=== PATIENT | male | born 1950 | race Caucasian/White ===

== ENCOUNTER → 2016-10-04 | Outpatient (CLI) | payer MEDICARE ==
--- NOTE | 2016-10-04 10:50 | XR ---
EXAMINATION TYPE: XR Hip Bilateral Complete DATE OF EXAM: 10/04/2016 10:40 AM CLINICAL HISTORY: pain TECHNIQUE: AP and frogleg views of the bilateral hips are obtained. COMPARISON: None. FINDINGS: There is no acute fracture/dislocation evident. The joint space appears within normal li mits. The overlying soft tissue appears unremarkable. IMPRESSION: 1. There is no acute fracture or dislocation. ICD 10 NO FRACTURE, INITIAL EVALUATION
== END ==
LOC: RADXRMAIN 10:21
PROVIDERS: ATTEND Psychiatry & Neurology Neurology
DX: M25.551 Pain in right hip (principal); R41.3 Other amnesia; R25.1 Tremor, unspecified
CPT/HCPCS: 36415; 73521; 82607; 84439; 84443

== ENCOUNTER → 2016-12-05 | Outpatient (CLI) | payer MEDICARE ==
--- NOTE | 2016-12-05 08:50 | MR ---
EXAMINATION TYPE: MR lumbar spine wo con DATE OF EXAM: 12/05/2016 COMPARISON: NONE HISTORY: spinal stenosis of lsp TECHNIQUE: T1 and T2 axial and sagittal images of the lumbar spine are submitted. FINDINGS: There is no abnormal signal seen within the visualized spinal cord or paraspinal soft tissu es. At L1-2 there is facet arthropathy but no disc herniation or canal stenosis. No foraminal encroachmen t. At L2-3 there is facet arthropathy but no evidence of disc herniation or canal stenosis. No foraminal encroachment. At L3-4 there is facet arthropathy. Mild circumferential disc bulging greater right lateral component and mild right-sided foraminal encroachment At L4-5 there is grade 1 anterolisthesis with marked facet arthropathy, ligamentum flavum hypertrophy and diffuse disc bulging resulting in severe canal stenosis and bilateral foraminal encroachment. At L5-S1 there is mild facet arthropathy. No disc herniation or canal stenosis. No foraminal encroach ment. Benign 8 mm cyst seen within the pedicle of the right L5 vertebral body. IMPRESSION: 1. At L4-5 there is grade 1 anterolisthesis with marked facet arthropathy, ligamentum flavum hypertro phy and diffuse disc bulging resulting in severe canal stenosis and bilateral foraminal encroachment. 2. Multilevel facet arthropathy. Mild circumferential disc bulging L3-L4 greater laterally the right with right-sided foraminal encroachment. 3. 8mm circumscribed cysts compatible L5 vertebral body in the right. Likely benign. Could be correla tressa with nuclear medicine exam.
== END | disposition home or self-care (01) ==
LOC: RADMRIMAIN 08:08
PROVIDERS: ATTEND Psychiatry & Neurology Neurology
DX: M48.06 Spinal stenosis, lumbar region (principal); M51.26 Other intervertebral disc displacement, lumbar region; M43.16 Spondylolisthesis, lumbar region; M46.96 Unspecified inflammatory spondylopathy, lumbar region; M53.86 Other specified dorsopathies, lumbar region; M24.28 Disorder of ligament, vertebrae; M85.68 Other cyst of bone, other site
CPT/HCPCS: 72148

== ENCOUNTER → 2017-08-27 | Outpatient (CLI) | payer MEDICARE ==
--- NOTE | 2017-08-27 21:46 | BD ---
EXAMINATION TYPE: MG DEXA axial skeleton. DATE OF EXAM: 08/27/2017 COMPARISON: NONE CLINICAL HISTORY: 67 YR OLD MALE: ICD-10 CODE: M81.0 OSTEOPOROSIS Height: 68 Weight: 248 FRAX RISK QUESTIONS: Alcohol (3 or more units per day): NO Family History (Parent hip fracture): NO Glucocorticoids (More than 3mos): NO (Ex: prednisone, prednisolone, methylprednisolone, dexamethasone, and hydrocortisone). History of Fracture in Adulthood: NO Secondary Osteoporosis: NO 1. Type 1 Diabetes: NO 2. Hyperthyroidism: NO 3. Menopause before 45: NA 4. Malnutrition: NO 5. Chronic liver disease: NO Rheumatoid Arthritis: NO Current Tobacco Use: NO RISK FACTORS HISTORY OF: UNSURE, ANKLE POSSIBLY: CHILD Surgery to Spine): L4 AND L5 When: 2017 Family History of Osteoporosis: NONE Active: YES Diet low in dairy products/other sources of calcium: YES LOW Lost more than 2 inches in height since high school: NO Hyperparathyroidism: NO Adrenal Insufficiency: NO MEDICATIONS: Additional Medications: BP MEDS, ANTI ANXIETY AND ANTI DEPRESSANTS, REFLUX MEDS, LIPITOR, CALCIUM AND VIT D, ORAL DIABETIC MEDS AND VICTOZA INJECTIONS FOR DIABETES Additional History: DIABETIC, HYPERTENSION, EXAM MEASUREMENTS: Bone mineral densitometry was performed using the [employer]. Bone mineral density as measured about the Lumbar spine is: SPINE NOT TESTED, SURGICAL REPAIR WITH RODS, CAGE AND SCREWS....2017 TO L4 AND L5 Bone mineral density about the R hip (g/cm2): 0.974 Bone mineral density about the L hip (g/cm2): 1.006 T Score values are as follows: -----R Neck: -0.2 -----L Neck: 0.2 -----R Total: -0.3 -----L Total: 0.0 Bone mineral density FIRST BONE DENSITY SCAN.....BASELINE STUDY FRAX%S: THERE IS A 4.5% CHANCE OF A MAJOR OSTEOPOROTIC FX AND A 0.5% FOR HIP FX....PROBABILITY OF FX IN 10 YRS TIME IMPRESSION: Normal (Values between +1 and -1 indicate normal bone mass). Measurements were not taken of the lumb ar spine due to prior surgery. Consider repeating this study in 5 years or sooner if there is some ne w clinical indication. NOTE: T-SCORE=SD OF THE YOUNG ADULT MEAN.
== END | disposition home or self-care (01) ==
LOC: RADBDWWP 13:58
PROVIDERS: ATTEND Family Medicine
DX: M81.0 Age-related osteoporosis without current pathological fracture (principal)
CPT/HCPCS: 77080

== ENCOUNTER → 2019-09-01 | Outpatient (CLI) | payer MEDICARE ==
--- NOTE | 2019-09-01 13:31 | MR ---
EXAMINATION TYPE: MR brain wo/w con DATE OF EXAM: 09/01/2019 COMPARISON: Prior MRI brain May 25, 2016 HISTORY: CVA per order and patient. TECHNIQUE: Multiplanar, multisequence images of the brain and brainstem is performed without and with IV contras t, utilizing 10 mL intravenous Gadavist . FINDINGS: Diffusion weighted images demonstrate no evidence of a recent infarct or other diffusion ab normality. There is diffuse ventricular and sulcal prominence redemonstrated. No significant white ma tter changes are present bilaterally. Midline structures demonstrate normal morphology. The craniocervical junction appears within normal limits. Post contrast images demonstrate no abnormal enhancement. The dural venous sinuses appear pa tent. Mild mucosal thickening left frontal sinus with mild to moderate mucosal thickening throughout the anterior ethmoid sinuses bilaterally. Mild to minimal mucosal thickening anterior inferior axilla ry sinuses bilaterally. Elongated globes demonstrated bilaterally. IMPRESSION: 1. No evidence of a recent infarct. 2. Background mild to moderate diffuse cerebral atrophy redemonstrated. Chronic ethmoid sinus disease again seen. No new enhancement or significant change from prior study.
== END | disposition home or self-care (01) ==
LOC: RADXRMAIN 11:26
PROVIDERS: ATTEND Family Medicine
DX: G31.89 Other specified degenerative diseases of nervous system (principal); J34.89 Other specified disorders of nose and nasal sinuses
CPT/HCPCS: 70553; A9585

== ENCOUNTER 2019-11-02 13:02 | Inpatient (IN) | payer MEDICARE ==
[2019-11-02] MEDS: SODIUM CHLORIDE 0.9% 1,000 ML IV SCH (15:22)
[2019-11-02] MEDS: PANTOPRAZOLE 40 MG/10 ML VIAL IVP SCH (15:24)
--- NOTE | 2019-11-02 15:39 | US ---
EXAMINATION TYPE: US carotid duplex BILAT DATE OF EXAM: 11/02/2019 COMPARISON: NONE CLINICAL HISTORY: LOC, altered mental status. Abnormal brain MRI EXAM MEASUREMENTS: RIGHT: Peak Systolic Velocity (PSV) cm/sec ----- Right CCA: 83.6 ----- Right ICA: 104.3 ----- Right ECA: 125.3 ICA/CCA ratio: 1.2 RIGHT: End Diastole cm/sec ----- Right CCA: 12.4 ----- Right ICA: 15.0 ----- Right ECA: 0.0 LEFT: Peak Systolic Velocity (PSV) cm/sec ----- Left CCA: 88.8 ----- Left ICA: 106.4 ----- Left ECA: 132.3 ICA/CCA ratio: 1.2 LEFT: End Diastole cm/sec ----- Left CCA: 17.6 ----- Left ICA: 25.7 ----- Left ECA: 0.0 VERTEBRALS (direction of flow): Right Vertebral: Antegrade Left Vertebral: Antegrade Rhythm: Normal Bilateral wall thickening. Plaque visualized in bilateral bulbs. No significant stenosis. Left eleva tressa ECA velocity. Grayscale, color Doppler, spectral Doppler imaging performed of the carotid arteries. Waveform analys is does not show significant stenosis of the internal carotid arteries. IMPRESSION: No hemodynamic significant stenosis of the proximal internal carotid arteries by Doppler criteria, an indirect measurement of carotid stenosis Criteria for Assigning % of Stenosis / Diameter reduction (Estimation based on the indirect measurements of the internal carotid artery velocities (ICA PSV). 1. Normal (no stenosis)=ICA PSV < 125 cm/s: ratio < 2.0: ICA EDV<40 cm/s. 2. Less than 50% stenosis=ICA PSV < 125 cm/s: ratio < 2.0: ICA EDV<40 cm/s. 3. 50 to 69% stenosis=ICA PSV of 125 to 230 cm/s: ration 2.0 ? 4.0: ICA EDV 40-100 cm/s. 4. Greater than 70% stenosis to near occlusion= ICA PSV > 230 cm/s: ratio > 4.0: ICA EDV > 100 cm/s. 5. Near occlusion= ICA PSV velocities may be low or undetectable: variable ratio and ICA EDV. 6. Total occlusion=unable to detect flow.
[2019-11-02 15:41] LABS: Basophils # (A) 0.1 k/uL (0-0.2); Basophils % (A) 1 %; Eosinophils # (A) 0.4 k/uL (0-0.7); Eosinophils % (A) 5 %; HCT 45.9 % (39.0-53.0); HGB 15.3 gm/dL (13.0-17.5); Lymphocytes # (A) 2.4 k/uL (1.0-4.8); Lymphocytes % (A) 29 %; MCH 32.3 pg (25.0-35.0); MCHC 33.3 g/dL (31.0-37.0); MCV 96.9 fL (80.0-100.0); Mean Platelet Volume 10.1; Monocytes # (A) 0.5 k/uL (0-1.0); Monocytes % (A) 6 %; Neutrophils # (A) 4.8 k/uL (1.3-7.7); Neutrophils % (A) 58 %; Platelet Count 190 k/uL (150-450); RBC 4.74 m/uL (4.30-5.90); RDW 11.7 % (11.5-15.5); WBC 8.3 k/uL (3.8-10.6)
[2019-11-02 15:59] LABS: Albumin 4.1 g/dL (3.5-5.0); Calcium 9.5 mg/dL (8.4-10.2); Potassium 4.8 mmol/L (3.5-5.1); Total Bilirubin 0.6 mg/dL (0.2-1.3); Total Protein 7.1 g/dL (6.3-8.2)
[2019-11-02 16:36] LABS: Glucose,Whole Blood 135 mg/dL (75-99)
[2019-11-02] MEDS: INSULIN ASPART (NovoLOG) 100 UNIT/ML VIAL SQ SCH ×2 (16:54→20:34)
[2019-11-02] MEDS ORDERED: traMADol 50 MG TAB PO PRN (18:17)
--- NOTE | 2019-11-02 19:04 | P.CNNES ---
History of Present Illness Consult date: 11/02/19 Requesting physician: Julienne Mcghee Reason for Consult: LOC changes, dementia, ?CVA History of Present Illness: Patient is a 69-year-old male who was transferred to the hospital from his PCP office for evaluation of memory issues, rule out CVA. Although neurology consultation was initiated for ruling out CVA, but patient completely denies any focal neurological symptoms whatsoever. Patient tells me that for the last 6 months to a year, he has been forgetful, which is getting worse. It has got worse in the last 2-3 weeks. He lives with his and his also has noticed the problem with his memory functions. He is forgetting all kind of things, and his short-term memory is poor. He forgets names, things supposed to do, doesn't do. He denies any strokelike symptoms like slurred speech, facial droop, focal numbness tingling weakness diplopia. He does have hypertension and diabetes for the last 6 months. He denies tobacco or significant alcohol use. He drinks only 1-2 beers 2-3 times a week. Patient states that he does have family history of dementia, as his mother in her 70s who had early signs of memory loss. His father at age 48 of heart issues. Patient apparently is on memantine 5 mg twice a day, Cymbalta 60 mg, Abilify 2 mg. Also on Seroquel 50 mg, simvastatin 80 mg. Patient had an MRI of brain on 09/01/2019, which revealed no acute process. Background [id number] diffuse cerebral atrophy and redemonstrated. Chronic ethmoid sinus disease. No new enhancement or significant change from prior study. Patient had a carotid Doppler performed today, which revealed no hemodynamically significant stenosis of the proximal ICAs. Antegrade flow in both vertebral arteries. Patient had a normal arterial Doppler of the lower extremities on 03/31/2014. Patient had normal thyroid functions and B12 in 2017, nothing checked recently. Review of Systems Memory loss. Otherwise completely unremarkable. Patient denies any numbness tingling focal weakness slurred speech. Denies chest pain shortness of breath wheezing or cough. Denies diplopia. All other review of systems unremarkable. Past Medical History Past Medical History: Diabetes Mellitus, Hypertension History of Any Multi-Drug Resistant Organisms: None Reported Past Surgical History: Appendectomy, Back Surgery Additional Past Surgical History / Comment(s): angioplasty 25 years ago Past Psychological History: Depression Smoking Status: Never smoker Medications and Allergies Home Medications Medication Instructions Recorded Confirmed Type ARIPiprazole 2 mg PO HS 11/02/19 11/02/19 History Allopurinol [Zyloprim] 100 mg PO DAILY 11/02/19 11/02/19 History DULoxetine HCL [Cymbalta] 60 mg PO DAILY 11/02/19 11/02/19 History Dulaglutide [Trulicity] 1.5 mg SQ TH 11/02/19 11/02/19 History Lisinopril 20 mg PO BID 11/02/19 11/02/19 History Memantine HCl 5 mg PO BID 11/02/19 11/02/19 History QUEtiapine [SEROquel] 50 mg PO HS 11/02/19 11/02/19 History Saxagliptin HCl [Onglyza] 5 mg PO DAILY 11/02/19 11/02/19 History Simvastatin 80 mg PO HS 11/02/19 11/02/19 History traMADol HCL 50 mg PO BID PRN 11/02/19 11/02/19 History Allergies Allergy/AdvReac Type Severity Reaction Status Date / Time Latex, Natural Rubber AdvReac Rash/Hives Verified 11/02/19 18:01 Physical Examination - Vital Signs Vital Signs: Vital Signs Temp Pulse Resp BP Pulse Ox 11/02/19 14:40 98.6 F 62 15 138/75 97 Intake and Output 11/02/19 11/02/19 11/02/19 06:59 14:59 22:59 Intake Total 320 Balance 320 Intake: Oral 320 Other: Weight 99.79 kg On examination patient is an elderly male, in no acute distress. He is alert and awake. Patient knows his name, age, date of , states it is October and the year is 2018. He knows that he is in [facility] in [facility] and name of the current president. Patient has positive palmomental reflex, negative visuospatial apraxia. Clock drawing test was performed. Patient was able to make a cher-ae heights, placed the numbers very appropriately. Some problems with placement of the hands although was able to accomplish the task with some prompts. He has slight difficulty with transcribing "Quarter to five" to 4:45. Further detailed cognitive function testing deferred. Speech and language functions are normal. On cranial nerve examination pupils are round and reacting to light, visual johns are full, ex traocular muscles are intact. Face is symmetric, tongue protrudes the midline. Palatal elevation and sensation normal. Hearing and shoulder shrug normal. On muscle strength testing there is no pronator drift and the strength is normal in arms and legs distally and proximally. Reflexes are 1+ and plantars downgoing. Sensory to touch is equal. No ataxia for dzebdo-ht-zbre testing. Tone and bulk of muscles normal. No carotid bruit or murmur, peripheral pulses present. Abdomen soft nontender. Chest is clear. Results - Laboratory Findings CBC and BMP: 11/02/19 15:23 11/02/19 15:23 Abnormal Lab Findings: Abnormal Labs 11/02/19 11/02/19 15: 16:35 BUN 23 H Creatinine 1.48 H POC Glucose (mg/dL) 135 H Assessment and Plan Assessment: * Probable mild cognitive impairment versus early dementia. * Hypertension * Diabetes Plan: * Patient is already on memantine 5 mg twice a day. Consider optimizing the dose gradually to 10 mg twice a day. * Also would suggest starting acetylcholine esterase inhibitor, like Aricept 5 mg daily for a month, and if tolerated well, up to 10 mg per day. * I would leave these above suggestions to the discretion of PCP. * Please do not hesitate to contact me if you have any further concerns. * We will check B12, folate, TSH. * Neurology will sign off.
[2019-11-02 20:25] LABS: Glucose,Whole Blood 217 mg/dL (75-99)
[2019-11-02] MEDS: MEMANTINE 5 MG TAB PO SCH (20:34)
[2019-11-02] MEDS: LISINOPRIL 20 MG TAB PO SCH (20:34)
[2019-11-02] MEDS ORDERED: ARIPiprazole 2 MG TAB PO SCH (21:00)
[2019-11-02] MEDS ORDERED: ATORVASTATIN 40 MG TAB PO SCH (21:00)
[2019-11-03 04:04] LABS: Folate, Serum 14.7 ng/mL
[2019-11-03] MEDS: SODIUM CHLORIDE 0.9% 1,000 ML IV SCH (05:59)
[2019-11-03 06:46] LABS: Glucose,Whole Blood 105 mg/dL (75-99)
[2019-11-03 07:15] VITALS: BP 119/66; PULSE 54; RESP 17; TEMP 98.1
[2019-11-03] MEDS: INSULIN ASPART (NovoLOG) 100 UNIT/ML VIAL SQ SCH ×2 (07:31→11:53)
[2019-11-03] MEDS: MEMANTINE 5 MG TAB PO SCH (08:21)
[2019-11-03] MEDS: LISINOPRIL 20 MG TAB PO SCH (08:21)
[2019-11-03] MEDS: PANTOPRAZOLE 40 MG/10 ML VIAL IVP SCH (08:21)
[2019-11-03] MEDS ORDERED: ALLOPURINOL 100 MG TAB PO SCH (09:00)
[2019-11-03] MEDS ORDERED: DULoxetine HCL 60 MG CAPSULE.DR PO SCH (09:00)
--- NOTE | 2019-11-03 09:34 | HP ---
HISTORY AND PHYSICAL A 69-year-old white male for acute on chronic memory loss, worsening, family's son and are here stating he should nit be driving, he gets lost. Patient says he does it on purpose, getting lost and really drives around different ways home to burn time. It is not that he does not know where he is at, because he hit a button in his car and it takes him home but his family is concerned he is getting lost for the last 2-3 weeks, it is worsening. His memory is worsening. He is forgetting lots of things, memory short-term is poor. He has history of diabetes and hypertension. He has a history of alcohol bingeing different times, also. FAMILY HISTORY: Dementia. Mom in her 70s with memory loss. Father at age 48, heart issues. MEDICATIONS: Takes Namenda 5 mg b.i.d., Cymbalta 60 mg daily, Abilify 2 mg q.h.s., simvastatin 80 daily. He had MRI of the brain 09/01/2019, which showed diffuse atrophy, carotids were negative for a blockage. 14 POINT REVIEW OF SYSTEMS: Fourteen-point review of systems negative except for diabetic neuropathy. He has as mentioned, diabetes, hypertension, sleep apnea, polycythemia for which he takes Provigil at different times to wake him up. PAST SURGICAL HISTORY: Appendectomy, back surgery, stent, angioplasty 25 years ago, history of depression. ALLERGIES: LATEX. Temperature 98.6, pulse 60s, respiratory is 16-20, blood pressure 138/75, O2 is 97%. This is a male, in no acute distress. PSYCH: Alert and oriented x3. NEUROLOGY: Tests pending. CARDIOVASCULAR: S1, S2. LUNGS: Clear. GI: Soft. HEMATOLOGY: Negative Homans. He is sitting up in bed, giving appropriate affect at this time. Reflexes are 1+ in plantar down toning. VASCULAR: 1+ dorsalis pedis posterior. LABS: Reviewed. BUN is 23, creatinine 1.48. ASSESSMENT: 1. Mild cognitive impairment versus early dementia. 2. Hypertension. 3. Diabetes. He is on Namenda 5 mg b.i.d., increased to 10 b.i.d. and Aricept 5 mg a day. If Neurology signs out patient is stable, possible discharge home today. MMODL / IJN: [id number] /
--- NOTE | 2019-11-03 10:42 | MR ---
EXAMINATION TYPE: MR angio head wo con DATE OF EXAM: 11/03/2019 COMPARISON: HISTORY: AMS, dementia CONTRAST: None TECHNIQUE: Multiplanar multiecho imaging on a 3.0 Anabella magnet is performed through the [place]. 3-D ntnc-xc-bryogy imaging is performed. Source images are reviewed on the computer in the axi al plane. Reconstructed images rotating on the computer are reviewed. FINDINGS: The internal carotid arteries bifurcate normally into A1 and M1 segments. The A2 segments are normal. Middle cerebral artery branches are normal. Anterior communicating artery is absent. The right posterior communicating artery is absent. The left posterior communicating artery is small but patent. Vertebrobasilar arteries within the cqrkx-ds-lawe are normal. Posterior cerebral vasculature is norm al. No suspicious aneurysm or aneurysmal dilatation is evident. No obstructions are identified. No significant flow-limiting stenosis is evident. IMPRESSIONS: 1. NORMAL MRA [place].
--- NOTE | 2019-11-03 11:24 | MR ---
EXAMINATION TYPE: MR brain wo/w con DATE OF EXAM: 11/03/2019 COMPARISON: 09/01/2019 HISTORY: AMS, dementia CONTRAST: Performed utilizing 10 mL intravenous Gadavist gadolinium contrast. TECHNIQUE: Multiplanar, multiecho imaging on a 3.0 Anabella magnet is performed through the brain. Stud y is performed within 24 hours of arrival to the hospital. The craniovertebral junction is normal. The pituitary is normal. Diffusion-weighted imaging is performed. No abnormal hyperintensity is present to suggest an acute i ntracranial infarct or acute ischemic change. Some mild periventricular white matter hyperintensity may be present likely on the basis of chronic w trinity matter ischemic change. Some minimal change may be within the brainstem. Ventricles and sulci are very prominent for the patient age. Findings are compatible with atrophy. No abnormal enhancement is evident. IMPRESSIONS: 1. Atrophy with mild periventricular white matter ischemic changes.
[2019-11-03 11:31] LABS: Glucose,Whole Blood 159 mg/dL (75-99)
--- NOTE | 2019-11-03 13:07 | P.CN ---
Psychiatric Consult - . Consult date: 11/03/19 Consult:: IDENTIFYING DATA: He is a 69-year-old male admitted to the medicine unit for evaluation of worsening memory loss. The attending consulted psychiatry to evaluate the patient's "mood swings and depression." HISTORY OF PRESENT ILLNESS: I reviewed the medical record the patient. He acknowledged difficulties with memory and the level of memory impairment became obvious as the interview progressed. He was unable to provide much historical information and often apologizes that he could not remember. I spoke to his Trish. In retrospect she recognized a memory problems beginning maybe one or 2 years ago. It became apparent in April 2019 after she had a hip replacement surgery. She complained that he became lost when he drove her home from the hospital. He was unable to assist her with such task as paying bills, cooking, cleaning or driving her to appointments. The difficulties with memory; ""forgetfulness", has worsened to where he does not remember his actions or activities. She complained that before his hospitalization he could not find his reading glasses. She looked throughout the house and could not find them. She expects that she'll find them in an unusual spots such as the freezer. She gave examples where his cognitive impairment has interfered with his ability to perform complex tasks. The most recent example was calling the pharmacy to obtain a refill of his prescriptions. She was present when he called the pharmacy but was unable to perform the task. He is unable to pay bills, clock, clean or travels alone. She occasionally helps him with selecting clothing appropriate for the weather or the situation (a recent example was his inability to dress properly in [facility] a [facility] event). He is not as attentive to his personal hygiene as he had in the past. She said that he used to shower every day but recently she has to remind him. He does not need assistance with putting on his clothes, showering, bathing or toileting. She denied urinary incontinence or fecal incontinence. At this point, his does not feel comfortable leaving him alone and has recently began making arrangements for him to be supervised. She described a change in his personality where he is most more labile. She stated in the past he had a very even disposition recently becomes easily angry if he is frustrated. She talked about him getting so angry that he has "thrown things" at her. She has not spoken with his children or his former wives about his future care needs. PAST PSYCHIATRIC HISTORY: He denied history of psychiatric hospitalizations or m ental health treatment.. PAST MEDICAL HISTORY: See admission history and physical. ALLERGIES: NO KNOWN DRUG ALLERGIES. SUBSTANCE USE HISTORY: He described a social alcohol use pattern. He denied that he had a history of problems with alcohol or drugs. FAMILY PSYCHIATRIC/SUBSTANCE USE HISTORY: He is unaware of family history of mental health or substance use problems.. 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 He is 18 years to his third . He has 2 children from her second marriage. He lives alone with his .. MENTAL STATUS EXAM: He presented as a casually groomed elderly male who was wearing sunglasses. He made eye contact and attended the interview. He is no distinguishing features or prominent physical abnormalities. He had a blunted but bright facial expression. He was alert and oriented to person, place, month and year. He showed no abnormality of psychomotor activity. He had no abnormal involuntary movements. I did not evaluate his gait. His speech was spontaneous with normal rate, rhythm and volume. He had no articulation difficulties. His affect was stable and appropriate. He denied suicidal ideation or wishes. He denied homicidal ideation. He denied feeling hopeless, helpless or worthless. He ruminated about his memory problems but did not express ideas reference, paranoid ideation, magical ideation or delusions. His sticking was concrete but his associations were coherent, logical and goal directed. He denied hallucinations and did not appear to responding to internal stimuli. we completed the [facility] Orientation Memory and Concentration Test. His total weighted error score was 14; a total weighted error score greater than 10 is consistent with a dementia. He knew the month and the year. He was able to repeat the memory phrase "Tommy Moore, [address] [place] [id number]". He estimated time correctly within 1 hour actual time. He was able to count backwards from 20-1 but was unable to name the months of the year in reverse order. He did not remember the memory phrase after distraction exercise. His score on the Functional Assessment Station Test (FAST) was 5 - moderate dementia. IMPRESSIONS: His 69-year-old male who presented to Hospital for evaluation of increasing memory impairment. He was unable to explain the reason for hospitalization and was unable to ride a detailed medical or past history. He acknowledges memory problems but denied other concerns. His describes a decline in cognitive functioning beginning about 1-2 years ago but becoming more more prominent in the last 7 months. Over the last few months and he is shown to personality changes with increasing irritability, frustration and displays of temper. His history and presentation are consistent with a progressive dementia most likely a dementia of the Alzheimer's type. DIAGNOSIS: Major neurocognitive disorder of the Alzheimer's type, PLAN:There is no indication for transfer to psychiatric unit. I would maximize treatment with Namenda and consider the addition of an anticholinesterase inhibitor (donepezil, rrivastigmine, galantamine). The antidepressants particularly to serotonin reuptake julianne sometimes have value in treating mood lability and dementia. I am unaware if there is a clinic or "day program" in the community that offers psychosocial's interventions such as cognitive stimulation, occupational therapy, ruminations since therapy or recreation therapy this for initial with dementia but he may benefit from these interventions. The use of antipsychotics and mood stabilizers are controversial and her only reserved in situations where a person's behavior becomes a threat to himself or others. If his condition progresses then his functioning will decline to where he would need 24-hour care. Psychiatry will sign off the case. Thank you for the consult. 11/03/19 12:38
--- NOTE | 2019-11-03 14:26 | P.DS ---
Providers Date of admission: 11/02/19 13:56 Expected date of discharge: 11/03/19 Attending physician: Tommy Moreno Consults: 11/02/19 14:19 Consult Physician Routine Consulting Provider: Micheal Ferris Consult Reason/Comments: LOC changes, dementia,?CVA Do you want consulting provider notified?: Yes Placement Type Exists?: Yes 11/02/19 18:19 Consult Physician Routine Consulting Provider: Tommy Quiles Consult Reason/Comments: mood swings/depression Do you want consulting provider notified?: Yes Primary care physician: [facility] Course: Probable Mild cognitive improvement, possible early dementia as per neurology. Major neurocognitive disorder of the Alzheimer's type as per psychiatry.(His score on the Functional Assessment Station Test (FAST) was 5 - moderate dementia. Completed the [employer] Memory and Concentration Test. His total weighted error score was 14; a total weighted error score greater than 10 is consistent with a dementia.. Hypertension Diabetes This is a 69-year-old gentleman admitted with mild cognitive impairment versus early dementia, hypertension, diabetes and multiple other medical issues. Evaluated by neurology and psychiatry. Scored a 14 on the [facility], 5 on the FAST. MRI/MRA completed. Patient will be discharged home with family pending neurology's final review of MRI/MRA and clearance, in a stable condition with guarded prognosis. The impression and plan of care has been dictated as directed. : I performed a history and examination of this patient, discussed the same with the dictator. I agree with the dictator's note ,documented as a scribe. Any additional findings or plans will be noted. Patient Condition at Discharge: Stable Plan - Discharge Summary Discharge Rx Participant: No New Discharge Prescriptions: Continue Lisinopril 20 mg PO BID traMADol HCL 50 mg PO BID PRN PRN Reason: Pain Saxagliptin HCl [Onglyza] 5 mg PO DAILY Memantine HCl 5 mg PO BID DULoxetine HCL [Cymbalta] 60 mg PO DAILY ARIPiprazole 2 mg PO HS QUEtiapine [SEROquel] 50 mg PO HS Dulaglutide [Trulicity] 1.5 mg SQ TH Allopurinol [Zyloprim] 100 mg PO DAILY Simvastatin 80 mg PO HS Discharge Medication List ARIPiprazole 2 mg PO HS 11/02/19 [History] Allopurinol [Zyloprim] 100 mg PO DAILY 11/02/19 [History] DULoxetine HCL [Cymbalta] 60 mg PO DAILY 11/02/19 [History] Dulaglutide [Trulicity] 1.5 mg SQ TH 11/02/19 [History] Lisinopril 20 mg PO BID 11/02/19 [History] Memantine HCl 5 mg PO BID 11/02/19 [History] QUEtiapine [SEROquel] 50 mg PO HS 11/02/19 [History] Saxagliptin HCl [Onglyza] 5 mg PO DAILY 11/02/19 [History] Simvastatin 80 mg PO HS 11/02/19 [History] traMADol HCL 50 mg PO BID PRN 11/02/19 [History] Follow up Appointment(s)/Referral(s): Andrey Wilson MD [REFERRING] - 1 Week (office will call with appointment time) Tommy Moreno MD [Primary Care Provider] - 11/09/19 (this will be a telehealth on Saturday. Office will call ) Ambulatory/Diagnostic Orders: Complete Blood Count w/diff [LAB.AMB] Time Frame: 3 Days, Location: None Selected Activity/Diet/Wound Care/Special Instructions: Pending neurology review of MRI/ MRA and clearance. Pending psychiatry DC recommendations/clearance
--- NOTE | 2019-11-03 15:48 | P.PN ---
Subjective Progress Note Date: 11/03/19 Patient offers no complaints. Denies headache. Objective - Vital Signs Vital signs: Vital Signs Temp 98.1 F 11/03/19 07:00 Pulse 54 L 11/03/19 07:00 Resp 17 11/03/19 07:00 BP 119/66 11/03/19 07:00 Pulse Ox 97 11/03/19 07:00 Intake & Output 11/02/19 11/03/19 11/03/19 18:59 06:59 18:59 Intake Total 985 295 0178 Output Total 1750 Balance 320 -1650 1190 Weight 99.79 kg Intake: Intake, IV Titration 150 Amount Sodium Chloride 0.9% 1, 150 000 ml @ 50 mls/hr IV . Q20H BOOM Rx#:[id number] Oral [phone] Output: Urine 1750 Other: Voiding Method Toilet # Voids 1 - Exam Patient's mental status, speech and language functions are stable, unchanged. Cranial nerves are normal. Muscle strength is completely normal. I had patient walk and observed his gait. Patient walks very normally with good arm swing, stride with no parkinsonian features or magnetic gait. - Labs CBC & Chem 7: 11/02/19 15:23 11/02/19 15:23 Labs: Abnormal Lab Results - Last 24 Hours (Table) 11/02/19 11/02/19 11/02/19 Range/Units 15:23 16:35 20:24 BUN 23 H (9-20) mg/dL Creatinine 1.48 H (0.66-1.25) mg/dL POC Glucose (mg/dL) 135 H 217 H (75-99) mg/dL 11/03/19 11/03/19 Range/Units 06:45 11:30 BUN (9-20) mg/dL Creatinine (0.66-1.25) mg/dL POC Glucose (mg/dL) 105 H 159 H (75-99) mg/dL Assessment and Plan Assessment: * Probable early dementia. * Hypertension * Diabetes Plan: * Patient is already on memantine 5 mg twice a day. Consider optimizing the dose gradually to 10 mg twice a day. * Also would suggest starting acetylcholine esterase inhibitor, like Aricept 5 mg daily for a month, and if tolerated well, up to 10 mg per day. * I would leave these above suggestions to the discretion of PCP. * Patient also underwent MRI of the brain, which revealed atrophy with mild periventricular white matter ischemic changes. I reviewed the MRI. There is prominence of the ventricular system, particularly involving the occipital horns and mildly the temporal horns. The frontal horns appear completely normal. Some concern of NPH. However I had patient walk, and there is no abnormal gait, that would raise possibility of NPH. There is some degree of cortical atrophy. * B12 636, folate 14.7, TSH 1.72. * Clear from neurology point. Neurology will sign off.
[2019-11-05] MEDS ORDERED: NON FORMULARY DRUG (Dulaglutide [Trulicity] 1.5 MG) SQ SCH (09:00)
== END 2019-11-03 16:05 | disposition home or self-care (01) | DRG 57 ==
LOC: 4SSUR 13:56
PROVIDERS: ADMIT Family Medicine; ATTEND Family Medicine
DX: G30.9 Alzheimer's disease, unspecified (principal); F02.80 Dementia in other diseases classified elsewhere, unspecified severity, without behavioral disturbance, psychotic disturbance, mood disturbance, and anxiety; F32.9 Major depressive disorder, single episode, unspecified; I10 Essential (primary) hypertension; J32.2 Chronic ethmoidal sinusitis; Z79.84 Long term (current) use of oral hypoglycemic drugs; Z79.899 Other long term (current) drug therapy; Z82.0 Family history of epilepsy and other diseases of the nervous system; Z95.9 Presence of cardiac and vascular implant and graft, unspecified; Z11.59 Encounter for screening for other viral diseases; F10.11 Alcohol abuse, in remission; E11.40 Type 2 diabetes mellitus with diabetic neuropathy, unspecified; D75.1 Secondary polycythemia; G47.30 Sleep apnea, unspecified
CPT/HCPCS: 70544; 70553; 80053; 82607; 82746; 84443; 85025; 87635; 93880